=== PATIENT | female | born 1975 | race Caucasian/White ===

== ENCOUNTER 2018-12-10 08:47 | Day surgery (SDC) | payer OTHER, BC | END 2018-12-10 12:00 | disposition home or self-care (01) | LOC: GIL 08:47 | DX: R19.4 Change in bowel habit (principal); Z53.9 Procedure and treatment not carried out, unspecified reason ==

== ENCOUNTER 2018-12-16 09:47 | Day surgery (SDC) | payer OTHER ==
[2018-12-16] MEDS ORDERED: PROPOFOL 40 ML (11:21)
[2018-12-16] MEDS ORDERED: LIDOCAINE 2% (SDV) 5 ML INJ (11:22)
== END 2018-12-16 14:15 | disposition home or self-care (01) ==
LOC: GIL 09:47
DX: R19.4 Change in bowel habit (principal); K64.8 Other hemorrhoids
CPT/HCPCS: 45378; 84703